=== PATIENT | female | born 1965 | race Caucasian/White ===

== ENCOUNTER 2021-03-20 08:18 | Outpatient (CLI) | payer OTHER, MEDICARE, SELFPAY ==
[2021-03-20 08:55] LABS: Hemoglobin 14.6 g/dL (12.0-15.0); Mean Corpuscular HGB Conc 32.4 g/dl (32-36); Mean Corpuscular Hemoglobin 28.1 pg (26-34); Mean Corpuscular Volume 86.7 fl (80-100); Mean Platelet Volume 9.6 fl (7.4-10.4); Platelet Count Result 245 k/mm3 (150-375); Red Blood Count 5.19 M/mm3 (4.2-5.4); Red Cell Distribution Width 13.3 % (11.5-14.5); White Blood Count 6.2 K/mm3 (4.5-10.0)
[2021-03-20 10:19] LABS: Alanine Aminotransferase 37 U/L (4-35); Albumin Level 4.1 g/dL (3.5-5.1); Alkaline Phosphatase 84 U/L (38-126); Anion Gap 8 mmol/L (8-16); Aspartate Amino Transferase 31 U/L (14-36); Bilirubin,Total 0.4 mg/dL (0.2-1.3); Blood Urea Nitrogen 11 mg/dL (7-17); Calcium 9.2 mg/dL (8.4-10.2); Carbon Dioxide 26 mmol/L (22-30); Chloride 107 mmol/L (98-107); Cholesterol 213 mg/dL (0-200); Estimated Glomerular Filt Rate > 60; Folic Acid 6.9 ng/mL (2.76->20); Glucose 115 mg/dL (65-105); HDL Direct 48 mg/dL; LDL Cholesterol Direct 118 mg/dL; Sodium 141 mmol/L (137-145); Triglycerides 138 mg/dL (<150)
== END 2021-03-20 08:19 | disposition home or self-care (01) ==
LOC: ANHLAB 08:23
PROVIDERS: PCP Physician Assistant; Visit Provider Physician Assistant
DX: Z00.00 Encounter for general adult medical examination without abnormal findings (principal)
CPT/HCPCS: 36415; 80053; 80061; 82607; 82746; 84443; 85027

== ENCOUNTER 2023-04-28 07:51 | Outpatient (CLI) | payer OTHER, MEDICARE, SELFPAY ==
[2023-04-28 08:16] LABS: Hematocrit 47.3 % (37.0-47.0); Hemoglobin 14.7 g/dL (12.0-15.0); Mean Corpuscular HGB Conc 31.1 g/dl (32-36); Mean Corpuscular Hemoglobin 27.8 pg (26-34); Mean Corpuscular Volume 89.4 fl (80-100); Mean Platelet Volume 9.7 fl (7.4-10.4); Platelet Count Result 233 k/mm3 (150-375); Red Blood Count 5.29 M/mm3 (4.2-5.4); Red Cell Distribution Width 13.3 % (11.5-14.5); White Blood Count 7.9 K/mm3 (4.5-10.0)
[2023-04-28 08:28] LABS: Alanine Aminotransferase 22 U/L (6-35); Albumin Level 4.4 g/dL (3.5-5.1); Alkaline Phosphatase 92 U/L (38-126); Anion Gap 5 mmol/L (8-16); Aspartate Amino Transferase 22 U/L (14-36); Bilirubin,Total 0.5 mg/dL (0.2-1.3); Blood Urea Nitrogen 18 mg/dL (7-17); Calcium 9.1 mg/dL (8.4-10.2); Carbon Dioxide 32 mmol/L (22-30); Chloride 99 mmol/L (98-107); Cholesterol 239 mg/dL (0-200); Estimated Glomerular Filt Rate > 60; Glucose 103 mg/dL (65-110); HDL Direct 50 mg/dL; Potassium 4.1 mmol/L (3.4-5.0); Sodium 136 mmol/L (137-145); Triglycerides 144 mg/dL (<150)
[2023-04-28 08:39] LABS: LDL Cholesterol Direct 140 mg/dL
[2023-04-28 09:33] LABS: Folic Acid 17.3 ng/mL (2.76->20)
== END 2023-04-28 07:52 | disposition home or self-care (01) ==
PROVIDERS: PCP Physician Assistant; Visit Provider Physician Assistant
DX: Z00.00 Encounter for general adult medical examination without abnormal findings (principal)
CPT/HCPCS: 36415; 80053; 80061; 82607; 82746; 84443; 85027

== ENCOUNTER 2023-06-24 11:38 | Outpatient (CLI) | payer OTHER, MEDICARE, SELFPAY ==
--- NOTE | ~2023-06-24 | XR_ITS ---
XR lumbar spine 6V w bending DATE: 06/24/2023 12:05 INDICATION: Low back pain TECHNIQUE: AP, lateral, coned lateral lumbosacral and bilateral oblique views. Flexion and extension lateral views. COMPARISON: None FINDINGS: Normal alignment of the lumbar spine in neutral, flexion and extension. Minimal thoracolumbar levoscoliosis. L3 limbus vertebra. The lumbar pedicles are intact. No fracture or bone destruction, spondylolysis or spondylolisthesis. There is minimal degenerative spurring but relative preservation of interspaces at the lumbar spine. The sacroiliac joints are intact. IMPRESSION: Mild levoscoliosis and minimal degenerative spurring Limbus vertebra at L3. Reviewed, dictated and finalized at location A.
== END 2023-06-24 11:39 | disposition home or self-care (01) ==
PROVIDERS: PCP Physician Assistant; Visit Provider Physician Assistant
DX: M54.50 Low back pain, unspecified (principal); M41.86 Other forms of scoliosis, lumbar region
CPT/HCPCS: 72114

== ENCOUNTER 2023-07-02 09:52 | Outpatient (CLI) | payer OTHER, MEDICARE, SELFPAY | END 2023-07-02 09:53 | disposition home or self-care (01) | LOC: ANHAUDIO 09:52 | PROVIDERS: PCP Physician Assistant; Visit Provider Physician Assistant | DX: H90.3 Sensorineural hearing loss, bilateral (principal) | CPT/HCPCS: 92557; 92567 ==

== ENCOUNTER 2023-08-10 09:00 | Outpatient (RCR) | payer OTHER, MEDICARE, SELFPAY ==
--- NOTE | 2023-07-13 10:56 | OPREHPOC ---
Outpatient Therapy Plan of Care This is a Multidisciplinary Plan of Care that may contain components documented by all disciplines (PT, OT, and ST.) PT Problem 1 PT Problem #1 Knowledge Deficit PT Goal 1 Goal 1* indep with HEP 2* pt perform lifting from floor with good body mechanics PT Problem 2 PT Problem #2 Pain PT Goal 1 Goal 1* pt report pain rating at worst of 4/10 in back 2* self assessment Oswestry score of 20% limitation in activity 3* pt report walking tolerance of 30 minutes before pain increases PT Problem 3 PT Problem #3 Impaired Flexibility PT Goal 1 Goal improve flexibility of hips to decrease strain and pull on spine and improve mobility hamstring length with supine SLR 1* R 55' 2* L 55' piriformis length with supine hip and knee flexion > 90, knee cross midline of body 3* R 4* L no pain increase reported with supine hip flexion stretch 5* R 6* L PT Problem 4 PT Problem #4 Impaired Strength PT Goal 1 Goal increase strength of trunk and hips, to improve stability to spine 1* pt able to perform 20 reps of mat strengthening exercises with good stability and control
--- NOTE | 2023-07-13 10:56 | PTOPEVAL1 ---
Assessment and note entered by Beatriz Camarena, PT Evaluation Information Assessment Status Evaluation Diagnosis low back pain Onset mid-Jun 2023 Subjective Information chronic issues with back pain, leaning over bath tub and back popped; have not had PT for back xray of back--mild levoscoliosis, minimal degenerative spurring; have more pain with home tasks--laundry, leaning forward, lifting groceries. 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 She reports chronic problems with back pain, but has never had PT treatment. Recent xray rpeort states mild levoscoliosis and minimal degenerative spurring. Oswestry self assessment score of 34% limitation in activity level. Back pain limits her walking and home activity level with home tasks. With the evaluation: in standing, she has increased lumbar lordosis; tightness over R and L hamstring and piriformis muscles, weakness of trunk and hips; pain increased with standing trunk flexion, supine R and L hip flexion motions Skilled PT services are indicated for modalities to decrease pain; therapeutic exercises to increase strength and flexibility of trunk and hips, with education for HEP and posture/body mechanics. Plan of Care Interventions Electrical Stimulation,Hot Pack/Cold Pack,Manual Therapy,Mechanical Traction,Neuro Re-education, Patie
--- NOTE | 2023-08-10 09:42 | PTOPDC ---
Assessment and note entered by Beatriz Camarena, PT Evaluation Information Assessment Status Discharge Diagnosis low back pain Onset mid-Jun 2023 Subjective Information back is better--not hurting all the time like it did before; doing her exercises at home; 30 minutes of being up and around, then have to sit down because back hurts; Reported Pain Level Pain Score Self Report Additional Pain Score Comments pain rating in past week: 0-5/10, bilateral low back, tensed up and hurts, achy; problems picking things up off floor, bending forward ease pain by sitting, resting, heat pad, take ibuprofen--1-2x/day; Assessment PT Clinical Summary Birana has received 9 PT sessions. Compared to the initial evaluation: pain rating from 1-9/10 to 0-5/10; reported walking/standing activity tolerance from 15 to 30 minutes; Oswestry self assessment rating from 34% to 18% limitation in activity level; increase flexibility of R and L hamstring & piriformis; increase strength of trunk and hips; improved posture/ body mechanics awareness; education completed for HEP and correct posture with exercises at fitness center; The goals were achieved except L hamstring flexibility. Discharge PT services; she is to continue with her home exercise program and body mechanics. Plan of Care PT Services Indicated No
== END 2023-08-10 11:21 | disposition home or self-care (01) ==
LOC: ANHPT 09:00
PROVIDERS: PCP Physician Assistant; Visit Provider Physician Assistant
DX: M54.50 Low back pain, unspecified (principal)
CPT/HCPCS: 97014; 97110; 97161; 97530; G0283

== ENCOUNTER 2023-09-06 08:26 | Emergency (ER) | payer OTHER, MEDICARE, SELFPAY ==
[2023-09-06 08:34] VITALS: BP 157/77; PULSE 118; RESP 20; TEMP 36.3; O2SAT 97
--- NOTE | 2023-09-06 08:40 | ED.GENADULT ---
HPI - General Adult General Chief complaint: Upper Respiratory Infection Stated complaint: throat/allergies Source: patient, RN notes reviewed and old records reviewed Mode of arrival: ambulatory Limitations: no limitations History of Present Illness HPI narrative: 57-year-old female presents to [facility] with complaints sinus congestion with scratchy throat that started today. Patient states has history of allergies, patient using Flonase. Patient denies history, chills, nausea vomiting, myalgias, chest pain, weakness, dizziness. Patient also taking [id number] cough and cold, states getting really MD complaint: congestion Onset (ago): week(s) (2-3) Related Data Home Medications Medication Instructions Recorded Confirmed clonazepam 0.5 mg tablet 0.5 mg PO TID 09/06/19 09/06/23 trazodone 50 mg tablet 200 mg PO .at bedtime 06/23/22 09/06/23 sertraline 100 mg tablet 150 mg PO DAILY 05/12/23 09/06/23 Allergies Allergy/AdvReac Type Severity Reaction Status Date / Time Penicillins Allergy Mild Diarrhea, Verified 09/06/23 08:41 vomiting Review of Systems Constitutional: Constitutional: Reports no additional constitutional complaints Eyes: Eyes: Reports no additional eye complaints ENT: Reports as per HPI, Reports nasal congestion, Reports sinus pressure and Reports sore throat Cardiovascular: Cardiovascular: Reports no additional cardiovascular complaints Respiratory: Respiratory: Reports no additional respiratory complaints Neurologic: Reports system reviewed and no additional complaints, except as documented [facility] Past Medical History Medical History Gastroesophageal reflux disease Obstructive sleep apnea Family History Family History Father Family history of congestive heart failure Social History Social History Smoking status: Never smoker Second hand tobacco smoke exposure: No Alcohol intake: never Lack of Transportation: No Lack of Food: Never True Current Housing: I Have Housing Concerned About Future Housing: No Difficulty Paying Gas/Electric Bills: No Difficulty Paying for Meds: No Currently Unemployed: No Education: Trade/Vocational Certificate Difficulty w/ Childcare or Family Care: No Comments At the time of my signature, I reviewed and agree with the nursing past medical, surgical, social, and family history. There is no relevant family history pertinent to the patient complaint. Exam Const: General: cooperative, healthy appearing, no acute distress and well nourished Nutritional Appearance: well nourished Orientation/consciousness: patient oriented x3 Limitations: no limitations HENMT: Head: normal to inspection and normocephalic Ears: external ears normal, TM's normal bilaterally, mastoids normal and Abnormal EAC present Face/Nose/Sinus: normal facial exam Face and sinus: normal facial exam Mouth: Yes Normal oral and palatal mucosa present, Yes oropharynx normal and Yes moist mucous membranes Throat: posterior oropharynx normal, tonsils normal, uvula midline and no uvular edema Eyes: General: appearance normal, both eyes and all related structures Sclera: sclerae normal Pupils: Equal, round and reactive pupils present Resp: Effort & Inspection: normal respiratory effort, able to speak in complete sentences, no audible wheezes, no cough, no respiratory distress and no retractions Auscultation: clear to auscultation bilaterally, no crackles, no rales, no rhonchi and no wheezes Cardio: Rate: regular rate Rhythm: regular rhythm Skin: General skin exam: normal color and no rashes or lesions noted Neuro: General: patient oriented x3 Cranial nerves: Yes Equal, round and reactive pupils present Psych: Appearance: grossly normal Course Course Emergency Course: Some parts
[2023-09-06 08:42] VITALS: BP 157/77; PULSE 118; RESP 20; TEMP 36.3; O2SAT 97
== END 2023-09-06 08:55 | disposition home or self-care (01) ==
PROVIDERS: Emergency Provider Registered Nurse; PCP Physician Assistant
DX: J30.89 Other allergic rhinitis (principal); K21.9 Gastro-esophageal reflux disease without esophagitis
CPT/HCPCS: 99213; G0463

== ENCOUNTER 2023-09-10 13:25 | Emergency (ER) | payer OTHER, MEDICARE, SELFPAY ==
[2023-09-10 13:33] VITALS: BP 161/91; PULSE 117; RESP 22; TEMP 36.7; O2SAT 92
--- NOTE | 2023-09-10 15:34 | ECG_ITS ---
Measurements Intervals [place] Rate: 115 P: OR: 0 QRS: 40 QRSD: 78 T: 32 QT: 319 QTc: 441 Interpretive Statements SINUS TACHYCARDIA Electronically Signed On 09-12-2023 10:13:21 FAMILY PRESERVATION OFFICER by Jose Luis Pastor M.D.
[2023-09-10 15:59] LABS: Basophils Percent Auto 0.4 % (0.2-1.2); Eosinophils Absolute Auto 0.1 K/mm3 (0-0.3); Eosinophils Percent Auto 1.1 % (0-4.4); Hematocrit 47.5 % (37.0-47.0); Hemoglobin 15.2 g/dL (12.0-15.0); Immature Granulocyte Absolute 0.01 K/mm3 (0.00-0.031); Immature Granulocyte Percent A 0.2 % (0-0.5); Lymphocytes Absolute Auto 1.88 K/mm3 (0.9-3.2); Lymphocytes Percent Auto 34.9 % (18.3-44.2); Mean Corpuscular Hemoglobin 27.8 pg (26-34); Mean Platelet Volume 9.5 fl (7.4-10.4); Monocytes Absolute Auto 0.5 K/mm3 (0.1-0.6); Monocytes Percent Auto 9.9 % (2.6-8.5); Neutrophils Absolute Auto 2.9 K/mm3 (1.3-6.7); Neutrophils Percent Auto 53.5 % (45.5-73.1); Platelet Count Result 231 k/mm3 (150-375); Red Blood Count 5.46 M/mm3 (4.2-5.4); Red Cell Distribution Width 13.2 % (11.5-14.5); White Blood Count 5.4 K/mm3 (4.5-10.0)
[2023-09-10 16:11] LABS: Alanine Aminotransferase 22 U/L (6-35); Albumin Level 4.5 g/dL (3.5-5.1); Alkaline Phosphatase 86 U/L (38-126); Anion Gap 7 mmol/L (8-16); Aspartate Amino Transferase 24 U/L (14-36); Bilirubin,Total 0.5 mg/dL (0.2-1.3); Blood Urea Nitrogen 16 mg/dL (7-17); Calcium 9.3 mg/dL (8.4-10.2); Carbon Dioxide 28 mmol/L (22-30); Chloride 103 mmol/L (98-107); Estimated CRCL calculation 86 ml/min; Estimated Glomerular Filt Rate > 60; Glucose 126 mg/dL (65-110); Potassium 4.2 mmol/L (3.4-5.0); Sodium 138 mmol/L (137-145)
[2023-09-10 16:21] LABS: Troponin I < 0.012 ng/mL (0.000-0.034)
[2023-09-10 17:01] VITALS: BP 156/108; PULSE 114; RESP 20; O2SAT 95
--- NOTE | 2023-09-10 17:04 | ED.RECABL ---
HPI - Recheck/Abnormal Lab/Rx General Chief Complaint: Recheck/Abnormal Lab/Rx Stated Complaint: htn Time Seen by Provider: 09/10/23 15:33 Source: patient Mode of arrival: ambulatory Limitations: no limitations History of Present Illness HPI narrative: 57-year-old female presents today with concerns of high blood pressure. Patient states she took her blood pressure at home and it was high. Patient has noted congestion and a sore throat that started on Wednesday. States she felt worse on Wednesday but currently now is feeling better. Still with some congestion and not feeling that great. She has been taking [id number] cold medicine such as NyQuil and decongestants and is concerned that this could have caused her blood pressure to be elevated. Patient states again that she feels better. She denies any chest pain, shortness a breath, fevers, body aches or chills at this time. Denies history of hypertension. States she does drink fluids yesterday she drank 3-16 oz bottles of fluid in that has a lot for her. Related Data Home Medications Medication Instructions Recorded Confirmed clonazepam 0.5 mg tablet 0.5 mg PO TID 09/06/19 09/06/23 trazodone 50 mg tablet 200 mg PO .at bedtime 06/23/22 09/06/23 sertraline 100 mg tablet 150 mg PO DAILY 05/12/23 09/06/23 Allergies Allergy/AdvReac Type Severity Reaction Status Date / Time Penicillins Allergy Mild Diarrhea, Verified 09/06/23 08:41 vomiting Review of Systems Review of Systems: All systems reviewed & are unremarkable except as noted in HPI and below PMFSH Past Medical History Medical History Gastroesophageal reflux disease Obstructive sleep apnea Family History Family History Father Family history of congestive heart failure Social History Social History Smoking status: Never smoker Second hand tobacco smoke exposure: No Alcohol intake: never Lack of Transportation: No Lack of Food: Never True Current Housing: I Have Housing Concerned About Future Housing: No Difficulty Paying Gas/Electric Bills: No Difficulty Paying for Meds: No Currently Unemployed: No Education: Trade/Vocational Certificate Difficulty w/ Childcare or Family Care: No Exam Const: General: cooperative, healthy appearing, comfortable, no acute distress and well developed Orientation/consciousness: patient oriented x3 HENMT: Head: normal to inspection Eyes: General: appearance normal, both eyes and all related structures Resp: Effort & Inspection: normal respiratory effort and able to speak in complete sentences Auscultation: clear to auscultation bilaterally Cardio: Rate: tachycardic Rhythm: regular rhythm Heart sounds: S1 normal heart sound present and S2 normal heart sound present Neuro: General: patient oriented x3 Course Vital Signs Vital signs: Vital Signs Temperature 98.1 F 09/10/23 13:33 Pulse Rate 117 H 09/10/23 13:33 Respiratory Rate 22 H 09/10/23 13:33 Blood Pressure 161/91 H 09/10/23 13:33 Pulse Oximetry 92 09/10/23 13:33 Oxygen Delivery Room Air 09/10/23 13:33 Temperature 98.1 F 09/10/23 13:33 Pulse Rate 109 H 09/10/23 18:16 Respiratory Rate 18 09/10/23 18:16 Blood Pressure 161/109 H 09/10/23 18:16 Pulse Oximetry 99 09/10/23 18:16 Oxygen Delivery Room Air 09/10/23 13:33 MDM - Recheck/Abnormal Lab/Rx MDM Narrative Medical decision making narrative: 57-year-old female HPI as noted. That workup to include CBC CMP EKG troponin. No concerning findings and lab work. CMP without concerning findings. EKG shows sinus tach. Patient has been taking cold medicine. Currently does not seem to be high due to the amount of fluids that she states she is drinking. Still hypertensive in the emergency department but last blood pressure 161/
[2023-09-10 17:54] LABS: Influenza A QL RT-PCR Negative (Negative); Influenza B QL RT-PCR Negative (Negative); SARS-CoV-2 RNA PCR Positive (Negative)
[2023-09-10 18:16] VITALS: BP 161/109; PULSE 109; RESP 18; O2SAT 99
== END 2023-09-10 18:18 | disposition home or self-care (01) ==
PROVIDERS: Emergency Provider Nurse Practitioner Family; PCP Physician Assistant
DX: U07.1 COVID-19 (principal); I10 Essential (primary) hypertension; J06.9 Acute upper respiratory infection, unspecified; R00.0 Tachycardia, unspecified; K21.9 Gastro-esophageal reflux disease without esophagitis; G47.33 Obstructive sleep apnea (adult) (pediatric)
CPT/HCPCS: 36415; 80053; 84484; 85025; 87636; 93005; 99284

== ENCOUNTER 2024-01-23 10:09 | Emergency (ER) | payer MEDICARE, OTHER, SELFPAY ==
--- NOTE | ~2024-01-23 | CT_ITS ---
EXAMINATION: CT cervical spine wo con DATE: 01/23/2024 11:34 INDICATION: Neck pain TECHNIQUE: Computed tomography (CT) of the cervical spine was performed without intravenous contrast. The dose-length product was 421 mGy-cm. 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 COMPARISON: None FINDINGS: Straightening of cervical lordosis. Vertebral body heights are maintained. Craniovertebral junction is normal. No acute fracture or traumatic malalignment. There is mild multilevel uncinate an d facet hypertrophy. Lung apices are normal. No significant paraspinal soft tissue abnormality. IMPRESSION: 1. No acute abnormality of the cervical spine. Reviewed, dictated and finalized at location A.
[2024-01-23 10:25] VITALS: BP 144/88; PULSE 113; RESP 16; TEMP 36.6; O2SAT 100
[2024-01-23 10:31] VITALS: BP 133/80; PULSE 96; RESP 16; TEMP 36.6; O2SAT 93
[2024-01-23] MEDS: ACETAMINOPHEN 500 MG TABLET 1000 MG PO (10:56)
[2024-01-23] MEDS: LIDOCAINE 5% PATCH 1 PATCH TRANSDERM (10:57)
[2024-01-23 11:01] VITALS: BP 130/87; PULSE 97; RESP 16; O2SAT 92
[2024-01-23 12:00] VITALS: BP 130/86; PULSE 98; RESP 16; TEMP 36.6; O2SAT 96
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
== END 2024-01-23 12:44 | disposition home or self-care (01) ==
PROVIDERS: Emergency Provider Preventive Medicine Aerospace Medicine; PCP Physician Assistant
DX: S13.4XXA Sprain of ligaments of cervical spine, initial encounter (principal); K21.9 Gastro-esophageal reflux disease without esophagitis; G47.33 Obstructive sleep apnea (adult) (pediatric); V49.40XA Driver injured in collision with unspecified motor vehicles in traffic accident, initial encounter
CPT/HCPCS: 72125; 99284; A9270

== ENCOUNTER 2024-05-10 10:30 | Outpatient (RCR) | payer OTHER, MEDICARE, SELFPAY ==
--- NOTE | 2024-03-01 09:23 | OPREHPOC ---
Outpatient Therapy Plan of Care This is a Multidisciplinary Plan of Care that may contain components documented by all disciplines (PT, OT, and ST.) PT Problem 1 PT Problem #1 Knowledge Deficit PT Goal 1 Goal *indep with HEP * correct posture with exercises Target Visit 8 PT Problem 2 PT Problem #2 Pain PT Goal 1 Goal 1* pain rating at worst of 4/10 2* self assessment Neck Disability Index rating of 24% limitation Target Visit 8 PT Problem 3 PT Problem #3 Impaired Flexibility PT Goal 1 Goal increase cervical ROM to improve ability to turn head with driving and home tasks 1* cervial rotation to R 50' 2* cervical rotation to L 50' 3* no pain increase with rotation R 4* no pain increase with rotation L Target Visit 8 PT Problem 4 PT Problem #4 Impaired Strength PT Goal 1 Goal Increase strength of cervical-thoracic musculature to improve posture and position of neck and shoulders: 1* pt able to perform 20 reps of strengthening exercises Target Visit 8
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
--- NOTE | 2024-03-23 10:42 | OPREHPOC ---
Outpatient Therapy Plan of Care This is a Multidisciplinary Plan of Care that may contain components documented by all disciplines (PT, OT, and ST.) PT Problem 1 PT Problem #1 Knowledge Deficit PT Goal 1 Goal *indep with HEP * correct posture with exercises Target Visit 8 Progress Met Comment 03-23-24 progress goals met continue towards goals; progress education and HEP PT Goal 2 Target Visit 16 PT Problem 2 PT Problem #2 Pain PT Goal 1 Goal 1* pain rating at worst of 4/10 2* self assessment Neck Disability Index rating of 24% limitation Target Visit 8 Progress Not Met Comment 03-23-24 progress goals not met; improved #1 to 03/13' #2 to 30% continue towards goals PT Goal 2 Target Visit 16 PT Problem 3 PT Problem #3 Impaired Flexibility PT Goal 1 Goal increase cervical ROM to improve ability to turn head with driving and home tasks 1* cervial rotation to R 50' 2* cervical rotation to L 50' 3* no pain increase with rotation R 4* no pain increase with rotation L Target Visit 8 Progress Not Met Comment 03-23-24 progress goals not met; improved with #2 to 45' continue towards goals PT Goal 2 Target Visit 16 PT Problem 4 PT Problem #4 Impaired Strength PT Goal 1 Goal Increase strength of cervical-thoracic musculature to improve posture and position of neck and shoulders: 1* pt able to perform 20 reps of strengthening exercises Target Visit 8
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
--- NOTE | 2024-03-23 10:59 | PCPTNOTE ---
During today's reevaluation, pt reports her will be having surgery, so she does not want to schedule any more appointments until he is stable and she does not have to assist him. Pt to call for appointments.
--- NOTE | 2024-04-27 09:33 | PCPTNOTE ---
Talked with pt on phone, she reports her has had surgery and she has been busy helping him. She has been ill and coughing, saw yesterday about her cough and is feeling better. Said she was going to call next week for appt to return to therapy.
--- NOTE | 2024-05-22 13:29 | PCPTNOTE ---
This treatment is being continued on visit number [id number] Please see documentation on both accounts to view progress. Completed interventions, outcomes, and problems have been marked as Inactive to facilitate the copying of the Care plan routine for recurring accounts.
== END 2024-05-22 09:50 | disposition home or self-care (01) ==
LOC: ANHPT 10:30
PROVIDERS: PCP Physician Assistant; Visit Provider Physician Assistant
DX: S13.4XXD Sprain of ligaments of cervical spine, subsequent encounter (principal)
CPT/HCPCS: 97014; 97110; 97140; 97161; 97530; G0283

== ENCOUNTER 2024-06-08 09:45 | Outpatient (RCR) | payer OTHER, MEDICARE, SELFPAY ==
--- NOTE | 2024-05-22 13:30 | PCPTNOTE ---
This treatment is being continued from visit number [id number]. Please see documentation on both accounts to view progress. Completed interventions, outcomes, and problems have been marked as Inactive to facilitate the copying of the Care plan routine for recurring accounts.
--- NOTE | 2024-06-08 10:42 | OPREHPOC ---
Outpatient Therapy Plan of Care This is a Multidisciplinary Plan of Care that may contain components documented by all disciplines (PT, OT, and ST.) PT Problem 1 PT Problem #1 Knowledge Deficit PT Goal 1 Goal / Goal Update *indep with HEP * correct posture with exercises Target Visit 8 Progress Met PT Goal 2 Goal / Goal Update 06-08-24 progress goals met continue towards goals to progress education Target Visit 23 Progress Met PT Problem 2 PT Problem #2 Pain PT Goal 1 Goal / Goal Update 1* pain rating at worst of 4/10 2* self assessment Neck Disability Index rating of 24% limitation Target Visit 8 Progress Not Met PT Goal 2 Goal / Goal Update 06-08-24 progress goals not met continue towards goals Target Visit 23 PT Problem 3 PT Problem #3 Impaired Flexibility PT Goal 1 Goal / Goal Update increase cervical ROM to improve ability to turn head with driving and home tasks 1* cervical rotation to R 50' 2* cervical rotation to L 50' 3* no pain increase with rotation R 4* no pain increase with rotation L Target Visit 8 Progress Not Met PT Goal 2 Goal / Goal Update 06-08-24 progress goals not met continue towards: ADD: 5* R shoulder flexion without pain increase 6* R shoulder IR without pain increase Target Visit 23 Progress Not Met PT Problem 4 PT Problem #4 Impaired Strength PT Goal 1 Goal / Goal Update Increase strength of cervical-thoracic musculature to improve posture and position of neck and shoulders: 1* pt able to perform 20 reps of strengthening exercises Target Visit 8
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
== END 2024-07-13 13:43 | disposition home or self-care (01) ==
LOC: ANHPT 09:45
PROVIDERS: PCP Physician Assistant; Visit Provider Physician Assistant
DX: S13.4XXD Sprain of ligaments of cervical spine, subsequent encounter (principal)
CPT/HCPCS: 97014; 97110; 97140; G0283

== ENCOUNTER 2024-07-01 10:48 | Emergency (ER) | payer OTHER, MEDICARE, SELFPAY ==
[2024-07-01 11:13] VITALS: BP 168/100; PULSE 123; RESP 20; TEMP 36.7; O2SAT 90
--- NOTE | 2024-07-01 12:02 | ED.GENADULT ---
HPI - General Adult General Chief complaint: Dental/Oral Stated complaint: cut tongue Time Seen by Provider: 07/01/24 11:54 Source: patient and family Mode of arrival: ambulatory Limitations: no limitations History of Present Illness HPI narrative: 4 YEARS OLD WHITE FEMALE COMPLAINING OF DENTAL DECAY, BROKEN TEETH MAINLY ON THE RIGHT SIDE, CLINCHING ON HER TEETH AT NIGHT, WITH INTERMITTENT BLEEDING AT THE RIGHT SIDE OF THE TONGUE. PATIENT IS NOT ON BLOOD THINNER, DENIES ANY FEVER, CHILLS, NAUSEA, VOMITING, TROUBLE BREATHING OR SWALLOWING, CHEST PAIN, SHORTNESS OF BREATH, HEADACHE OR BACK PAIN. Related Data Home Medications Medication Instructions Recorded Confirmed clonazepam 0.5 mg tablet 0.5 mg PO TID 09/06/19 04/14/24 trazodone 50 mg tablet 200 mg PO .at bedtime 06/23/22 04/14/24 sertraline 100 mg tablet 150 mg PO DAILY 05/12/23 04/14/24 Allergies Allergy/AdvReac Type Severity Reaction Status Date / Time Penicillins AdvReac Mild Diarrhea, Verified 07/01/24 10:49 vomiting Review of Systems Review of Systems: All systems reviewed & are unremarkable except as noted in HPI and below PMFSH Past Medical History Medical History Gastroesophageal reflux disease Obstructive sleep apnea Family History Family History Father Family history of congestive heart failure Social History Social History Smoking status: Never smoker Second hand tobacco smoke exposure: No Alcohol intake: never Lack of Transportation: No Lack of Food: Never True Current Housing: I Have Housing Concerned About Future Housing: No Difficulty Paying Gas/Electric Bills: No Difficulty Paying for Meds: No Currently Unemployed: No Education: Trade/Vocational Certificate Difficulty w/ Childcare or Family Care: No Exam Narrative: GENERAL APPEARANCE: WELL-DEVELOPED, WELL-NOURISHED SKIN: NORMAL COLOR HEAD: NORMOCEPHALIC, NONTRAUMATIC EYES: CLEAR CONJUNCTIVA ENT: OROPHARYNX NORMAL, EARS NORMAL, NOSE NORMAL, EXTENSIVE DENTAL DECAY WITH FRACTURE TEETH RIGHT UPPER AND RIGHT LOWER SIDE, TIMES EXAM SHOWED DRIED BLOOD AT THE TOP OF IT, NO LESIONS, IMPRESSION AT THE RIGHT SIDE OF THE TONGUE, NO ACTIVE BLEEDING CARDIOVASCULAR: REGULAR TACHYCARDIA NECK: SUPPLE, NONTENDER NEUROLOGIC: ALERT AND ORIENTED ?3, Course Vital Signs Vital signs: Vital Signs Temperature 36.7 C 07/01/24 11:13 Pulse Rate 123 H 07/01/24 11:13 Respiratory Rate 20 07/01/24 11:13 Blood Pressure 168/100 H 07/01/24 11:13 Pulse Oximetry 90 07/01/24 11:13 Oxygen Delivery Room Air 07/01/24 11:13 Temperature 36.7 C 07/01/24 11:13 Pulse Rate 123 H 07/01/24 11:13 Respiratory Rate 07/01/24 11:13 Blood Pressure 168/100 H 07/01/24 11:13 Pulse Oximetry 90 07/01/24 11:13 Oxygen Delivery Room Air 07/01/24 11:13 Medical Decision Making MDM Narrative Medical decision making narrative: RIGHT SIDE TONGUE ABRASION SECONDARY TO DENTAL DECAY AND BROKEN TEETH IS MY CONCERN. PATIENT IS TELLING ME THAT SHE HAVE A DENTIST TO FOLLOW UP WITH, UNABLE TO FOLLOW-UP WITH DENTIST FOR YEARS BECAUSE OF MONEY ISSUES. NO LABS OR IMAGING ARE REQUIRED AT THIS TIME EKG SHOWING SINUS TACHYCARDIA. PATIENT IS ASYMPTOMATIC, HIGH LIKELY SECONDARY TO STRESS, OR ANXIETY RELATED TO HER DENTAL AND TONGUE SITUATION. Vital Signs Vital Signs: Vital Signs Temperature 36.7 C 07/01/24 11:13 Pulse Rate 123 H 07/01/24 11:13 Respiratory Rate 07/01/24 11:13 Blood Pressure 168/100 H 07/01/24 11:13 Pulse Oxi
--- NOTE | 2024-07-01 12:03 | ECG_ITS ---
Test Date: 2024-07-01 11:55:42 Measurements Intervals [place] Rate: 128 P: 41 MI: 147 QRS: 48 QRSD: 81 T: 25 QT: 290 QTc: 424 Interpretive Statements SINUS TACHYCARDIA DELAYED PRECORDIAL R/S TRANSITION BORDERLINE T WAVE ABNORMALITY- ANTERIOR LEADS BASELINE ARTIFACT- III ABNORMAL ECG No previous ECG available for comparison Electronically Signed On 07-01-2024 16:58:08 CDT by Wang Malcolm D.O.
[2024-07-01 12:19] VITALS: BP 150/102; PULSE 106; RESP 18; O2SAT 94
== END 2024-07-01 12:21 | disposition home or self-care (01) ==
PROVIDERS: Emergency Provider Emergency Medicine; PCP Internal Medicine
DX: K02.9 Dental caries, unspecified (principal); S00.512A Abrasion of oral cavity, initial encounter; K21.9 Gastro-esophageal reflux disease without esophagitis; G47.33 Obstructive sleep apnea (adult) (pediatric); Z79.899 Other long term (current) drug therapy; R00.0 Tachycardia, unspecified; R94.31 Abnormal electrocardiogram [ECG] [EKG]; X58.XXXA Exposure to other specified factors, initial encounter
CPT/HCPCS: 93005; 99283

== ENCOUNTER 2024-07-18 08:33 | Outpatient (CLI) | payer OTHER, MEDICARE, SELFPAY ==
[2024-07-18 10:08] LABS: Alanine Aminotransferase 22 U/L (6-35); Albumin Level 4.2 g/dL (3.5-5.1); Alkaline Phosphatase 96 U/L (38-126); Anion Gap 8 mmol/L (4-12); Aspartate Amino Transferase 25 U/L (14-36); Bilirubin,Total 0.5 mg/dL (0.2-1.3); Blood Urea Nitrogen 18 mg/dL (7-17); Calcium 9.2 mg/dL (8.4-10.2); Carbon Dioxide 32 mmol/L (22-30); Chloride 99 mmol/L (98-107); Estimated Glomerular Filt Rate > 60; Glucose 97 mg/dL (65-110); Potassium 4.1 mmol/L (3.4-5.0); Sodium 139 mmol/L (137-145)
[2024-07-18 10:15] LABS: Hemoglobin A1C 6.2 % (<5.7)
== END 2024-07-18 08:34 | disposition home or self-care (01) ==
PROVIDERS: PCP Internal Medicine; Visit Provider Internal Medicine
DX: Z00.00 Encounter for general adult medical examination without abnormal findings (principal); E66.9 Obesity, unspecified; R73.9 Hyperglycemia, unspecified
CPT/HCPCS: 36415; 80053; 83036

== ENCOUNTER 2025-02-22 08:48 | Outpatient (CLI) | payer MEDICARE, OTHER, SELFPAY ==
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
--- OUTSIDE RECORDS SUMMARY | 2025-02-22 08:53 | XMS_ITS | Clinical Summary ---
Author Organization [facility] Address [address] [place] [address] Phone Care Team Providers Care Lithopress Operator Name Role Phone Cesar Yeh [facility] Primary Care Provider Allergies No known active allergies Medications buPROPion HCl (WELLBUTRIN PO) Take by mouth. Active SERTRALINE HCL PO Take by mouth. Active ARIPiprazole (ABILIFY) 15 MG Tablet Take 15 mg by mouth daily. Active TRAZODONE HCL PO Take by mouth. Active clonazePAM (KLONOPIN) 0.5 MG Tablet Take 0.5 mg by mouth 3 times daily. Active Active Problems Problem Noted Date Diagnosed Date Dissociative identity disorder 10/23/2015 Major depressive disorder, r ecurrent episode, moderate with anxious distress 08/14/2015 Social History Tobacco Use Types Packs/Day Years Used Date Smoking Tobacco: Never Smokeless Tobacco: Never Alcohol Use Standard Drinks/Week Comments No 0 (1 standard drink = 0.6 oz pur e alcohol) PHQ-2 Answer Date Recorded Total Score - Questions 1-9 1 05/2021 Sexually Active Control Partners Comments Not Currently Abstinence Male Comments Unknown Sex and Gender Information Value Date Recorded Sex Assigned at Not on file Legal Sex Female 7:12 PM CDT Gender Identity Not on file Sexual Orientation Not on file Plan of Treatment Health Maintenance Due Date Last Done Comments Hepatitis C Virus (HCV) Screening 1965 TdaP Immunization 1965 Colonoscopy 12/30/2008 Colorectal Cancer Screening 12/30/2008 Cologuard 12/30/2013 Immunochemical Fecal Occult Blood 12/30/2013 Pneumococcal Immunization (5 0+ years) (1 of 1 - PCV) 12/30/2013 Zoster Immunization (1 of 2) 12/30/2013 Influenza Immunization (#1) 2024 SARS-COV-2 Immunization ( - season) 2024 08/08/2021, 12/20/2020, 11/22/2020 Respiratory Syncytial Virus (RSV) Immunization (Adult) (1 - 1-dose 75+ series) 12/30/2038 Hepatitis B Immunization Aged Out No longer eligible based on patient's age to complete this topic Meningococcal Immunization (ACWY) Aged Out No longer eligible b ased on patient's age to complete this topic Rotavirus Immunization Aged Out No lo nger eligible based on patient's age to complete this topic Goals Goal Patient Goal Type Associated Problems Recent Progress Patient-Stated? 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, 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, during her 30 min individual/family therapy sessions, 1-2 times per month Patient encouraged to focus on what she has control over versus what she doesn't, during her 30 min individual/family sessions, 1-2 times per month Behavioral Health Behavioral Health On track( 022 11:36 AM CDT) No Devon Cruz LCSW Note: Goal: Patient will be able to adhere to more of a healthy routine, less tablet- time, doing housework with healthy leisure activities, within the next one year Goal Reviewed today with: patient and significant other Readiness to change: Ready to change Department associated with goal: [facility] Steps to achieve goal: Patient counseled on importance of healthy daily routine, during her 30 min individual/family therapy sessions, 1-2 times per month Patient counseled on different ideas for leisure activities, during her 30 min individual/family therapy sessions, 1-2 times per month Insurance MEDICARE [facility] MEDICARE [facility] Care Teams Lithopress Operator Relationship Specialty Start Date End Date Cesar Yeh PAC [address] [place] [address] PCP - General Physician E Business Project Manager 01/27/21
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
== END 2025-02-22 08:49 | disposition home or self-care (01) ==
LOC: ANHAUDIO 08:49
PROVIDERS: PCP Internal Medicine; Visit Provider Internal Medicine
DX: H91.90 Unspecified hearing loss, unspecified ear (principal)
CPT/HCPCS: 99199

== ENCOUNTER 2025-03-08 09:53 | Outpatient (CLI) | payer OTHER, MEDICARE, SELFPAY ==
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
--- OUTSIDE RECORDS SUMMARY | 2025-03-08 10:46 | XMS_ITS | Clinical Summary ---
Author Organization [facility] Address [address] [place] [address] Phone Care Team Providers Care Steward/Stewardess Second Name Role Phone Cesar Yeh [facility] Primary Care Provider Allergies No known active [...] 12/30/2013 Zoster Immunization (1 of 2) 12/30/2013 SARS-COV-2 Immunization (4 - season) 2024 08/08/2021, 12/20/2020, 11/22/2020 Influenza Immunization (Seas on Ended) 2025 Respiratory Syncytial Virus (RSV) Immunization (Adult) (1 - 1-dose 75+ series) 12/30/2038 Hepatitis B Immunization Aged Out No longer eligible based on patient's age to complete this topic Human Papillomavirus (HPV) Immunization Aged Out No longer eligible b ased [...] Author Behavioral Health Behavioral Health On track( 022 11:36 AM CDT) Yes Devon Cruz, MATIAS Note: I want to be less anxious and cope better with the COVID pandemic within the next one year Goal Reviewed today with: patient Readiness to change: Ready to change Department associated with goal: [facility] Steps to achieve goal: Patient counseled onadhering to a healthy daily routine: showering dressing, 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, 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, during her 30 min individual/family [...] Ready to change [facility] associated with [facility] Steps to achieve goal: Patient counseled on importance of healthy daily routine, during her 30 min individual/family therapy sessions, 1-2 times per month Patient counseled on different ideas for leisure activities, during her 30 min individual/family therapy sessions, 1-2 times per month Insurance MEDICARE [facility] MEDICARE [facility] Care Teams Steward/Stewardess Second Relationship Specialty Start Date End Date Cesar Yeh PAC [address] [place] [address] PCP - General Physician Pension Examiner 01/27/21
== END 2025-03-08 09:54 | disposition home or self-care (01) ==
LOC: ANHAUDIO 09:53
PROVIDERS: PCP Internal Medicine; Visit Provider Internal Medicine
DX: H90.3 Sensorineural hearing loss, bilateral (principal); H93.19 Tinnitus, unspecified ear
CPT/HCPCS: 92557; 92567

== ENCOUNTER 2025-04-11 08:56 | Outpatient (CLI) | payer OTHER, MEDICARE, SELFPAY ==
--- OUTSIDE RECORDS SUMMARY | 2025-04-11 09:02 | XMS_ITS | Clinical Summary ---
Author Organization [facility] Address [address] [place] [address] Phone Care Team Providers Care Laborer Pie Bakery Name Role Phone Cesar Yeh [facility] Primary Care Provider Allergies No known active [...] Virus (HCV) Screening 1965 TdaP Immunization 1965 Pap Smear 12/30/1984 Cervical Cancer Screening (CCS) 12/30/1993 HPV/Cotest 12/30/1993 Cologuard 12/30/2008 Colonoscopy 12/30/2008 Colorectal Cancer Screening 12/30/2008 Immunochemical Fecal Occult Blood 12/30/2008 Pneumococcal Immunization (5 0+ years) (1 of 1 - PCV) 12/30/2013 Zoster Immunization (1 of 2) 12/30/2013 SARS-COV-2 Immunization ( - season) 2024 08/08/2021, 12/20/2020, 11/22/2020 Influenza Immunization (#1) 2025 Respiratory Syncytial Virus (RSV) Immunization (Adult) [...] On track( 11:36 AM CDT) Yes Devon Cruz LCSW Note: I want to be less anxious and cope better with the COVID pandemic within the next one year Goal Reviewed today with: patient Readiness to change: Ready to change Department associated with goal: [facility] Steps to achieve goal: Patient counseled onadhering to a healthy daily routine: 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, 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, 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, during her 30 min individual/family therapy sessions, 1-2 times per month Patient encouraged to focus on what she has control over versus what she doesn't, during her 30 min individual/family sessions, 1-2 times per month Behavioral Health Behavioral Health On track( 022 11:36 AM CDT) No Devon Curz LCSW Note: Goal: Patient will be able to adhere to more of a healthy routine, less tablet- time, doing housework with healthy leisure activities, within the next one year Goal Reviewed today with: patient and significant other Readiness to change: Ready to change Department associated with goal: [facility] Steps to achieve goal: Patient counseled on importance of healthy daily routine, during her 30 min individual/family therapy sessions, 1-2 times per month Patient counseled on different ideas for leisure activities, during her 30 min individual/family therapy sessions, 1-2 times per month Insurance MEDICARE [facility] MEDICARE [facility] Care Teams Laborer Pie Bakery Relationship Specialty Start Date End Date Cesar Yeh PAC [address] [place] [address] PCP - General Physician Skylights Assembler 01/27/21
--- OUTSIDE RECORDS SUMMARY | 2025-04-11 09:02 | XMS_ITS | Referral Summary ---
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 MZ: FEDERICO Report ID: [id number] Reading Location: [place] [address] Procedure Note Brett Scruggs MD - 01/25/2025 [...] at C5-C6 and C6-C7. There is mild C5-S4xgerlce neural foraminal stenosis. IMPRESSION: No radiographic evidence [...] Brett Scruggs M.D. MZ: FEDERICO Report ID: [id number] Reading Location: [place] [address] Guerrero KRISHNAN IMG XR PROCEDURES Final Resu lt from Last 3 Months Insurance [facility] MEDICARE Care Teams Extractive Metallurgist Relationship Specialty Start Date End Date Jonatan Mc DO [address] [facility] [address] [place] [address] PCP - General Internal Medicine 08/24/24
--- OUTSIDE RECORDS SUMMARY | 2025-04-11 09:02 | XMS_ITS | Clinical Summary ---
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 MZ: FEDERICO Report ID: [id number] Reading Location: [place] [address] Procedure Note Brett Scruggs MD - 01/25/2025 [...] at C5-C6 and C6-C7. There is mild C5-G7xwpsivq neural foraminal stenosis. IMPRESSION: No radiographic evidence [...] Brett Scruggs M.D. MZ: FEDERICO Report ID: [id number] Reading Location: [place] [address] Guerrero KRISHNAN IMG XR PROCEDURES Final Resu lt from Last 3 Months Insurance [facility] MEDICARE Care Teams Rail Car Repairer Relationship Specialty Start Date End Date Jonatan Mc DO [address] [facility] 21 [place] [address] PCP - General Internal Medicine 08/24/24
[2025-04-11 18:05] LABS: Hemoglobin A1C 6.2 % (<5.7)
== END 2025-04-11 08:57 | disposition home or self-care (01) ==
PROVIDERS: PCP Internal Medicine; Visit Provider Nurse Practitioner
DX: Z00.00 Encounter for general adult medical examination without abnormal findings (principal); I10 Essential (primary) hypertension; R73.09 Other abnormal glucose; E66.9 Obesity, unspecified
CPT/HCPCS: 36415; 83036

== ENCOUNTER 2025-04-12 08:01 | Outpatient (CLI) | payer OTHER, MEDICARE, SELFPAY ==
--- OUTSIDE RECORDS SUMMARY | 2025-04-12 08:09 | XMS_ITS | Clinical Summary ---
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, during her 30 min individual/family [...] Ready to change Department associated with goal: [facility] Steps to achieve goal: Patient counseled on importance of healthy daily routine, during her 30 min individual/family therapy sessions, 1-2 times per month Patient counseled on different ideas for leisure activities, during her 30 min individual/family therapy sessions, 1-2 times per month Insurance MEDICARE [facility] MEDICARE [facility] Care Teams Groutman Relationship Specialty Start Date End Date Cesar Yeh PAC [address] [place] [address] PCP - General Physician Gamewell Operator 01/27/21
--- OUTSIDE RECORDS SUMMARY | 2025-04-12 08:09 | XMS_ITS | Referral Summary ---
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 MZ: FEDERICO Report ID: [id number] Reading Location: [place] [address] Procedure Note Brett Scruggs MD - 01/25/2025 [...] at C5-C6 and C6-C7. There is mild C5-M5heapaji neural foraminal stenosis. IMPRESSION: No radiographic evidence [...] Brett Scruggs M.D. MZ: FEDERICO Report ID: [id number] Reading Location: [place] [address] Guerrero KRISHNAN IMG XR PROCEDURES Final Resu lt from Last 3 Months Insurance [facility] H[facility]/PPO Address: [address] [address] [place] [address] MEDICARE Care Teams Christmas Tree Farm Manager Relationship Specialty Start Date End Date Jonatan Mc DO [address] [facility] [address] [place] [address] PCP - General Internal Medicine 08/24/24
--- OUTSIDE RECORDS SUMMARY | 2025-04-12 08:09 | XMS_ITS | Clinical Summary ---
Author Organization 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 MZ: FEDERICO Report ID: [id number] Reading Location: [place] [address] Procedure Note Brett Scruggs MD - 01/25/2025 [...] at C5-C6 and C6-C7. There is mild C5-K2nydtxez neural foraminal stenosis. IMPRESSION: No radiographic evidence [...] Brett Scruggs M.D. MZ: FEDERICO Report ID: [id number] Reading Location: [place] [address] Guerrero KRISHNAN IMG XR PROCEDURES Final Resu lt from Last 3 Months Insurance [facility] MEDICARE Care Teams Associate Financial Analyst Relationship Specialty Start Date End Date Jonatan Mc DO [address] [facility] [address] [place] [address] PCP - General Internal Medicine 08/24/24
[2025-04-12 09:18] LABS: Alanine Aminotransferase 19 U/L (6-35); Albumin Level 4.7 g/dL (3.5-5.1); Alkaline Phosphatase 90 U/L (38-126); Anion Gap 10 mmol/L (4-12); Aspartate Amino Transferase 23 U/L (14-36); Bilirubin,Total 0.4 mg/dL (0.2-1.3); Blood Urea Nitrogen 20 mg/dL (7-17); Calcium 9.7 mg/dL (8.4-10.2); Carbon Dioxide 27 mmol/L (22-30); Chloride 103 mmol/L (98-107); Cholesterol 298 mg/dL (0-200); Estimated Glomerular Filt Rate > 60; Glucose 121 mg/dL (65-110); HDL Direct 62 mg/dL; Potassium 4.0 mmol/L (3.4-5.0); Sodium 140 mmol/L (137-145); Total Protein 8.5 g/dL (6.3-8.2); Triglycerides 176 mg/dL (<150)
== END 2025-04-12 08:02 | disposition home or self-care (01) ==
LOC: ANHLAB 08:06
PROVIDERS: PCP Internal Medicine; Visit Provider Internal Medicine
DX: Z00.00 Encounter for general adult medical examination without abnormal findings (principal); I10 Essential (primary) hypertension; R73.09 Other abnormal glucose; E55.9 Vitamin D deficiency, unspecified
CPT/HCPCS: 36415; 80053; 80061

== ENCOUNTER 2025-06-05 08:45 | Outpatient (RCR) | payer OTHER, MEDICARE, SELFPAY ==
--- NOTE | 2025-03-08 11:56 | OPREHPOC ---
Outpatient Therapy Plan of Care This is a Multidisciplinary Plan of Care that may contain components documented by all disciplines (PT, OT, and ST.) PT Problem 1 PT Problem #1 Knowledge Deficit PT Goal 1 Goal / Goal Update 1* independent with HEP Target Visit 10 PT Problem 2 PT Problem #2 Pain PT Goal 1 Goal / Goal Update 1* pt report pain rating of 3/10 at worst with increased activity 2* pt report able to sleep in her bed Target Visit 10 PT Problem 3 PT Problem #3 Impaired Flexibility PT Goal 1 Goal / Goal Update improve cervical rotation to R and L- to improve ability to drive and perform daily activity active ROM 1* rotation R 45' 2* rotation L 45' Target Visit 10 PT Problem 4 PT Problem #4 Impaired Strength PT Goal 1 Goal / Goal Update * increase shoulder strength, to improve ability to do self and home tasks: in standing x 5 reps with hand weight: 1* R flexion to 90' with 4# 2* R abduction to 90' with 4# 3* L flexion to 90' with 4# 4* L abduction to 90' with 4# 5* R elbow flexion with 5# 6* L elbow flexion with 5#
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
--- NOTE | 2025-04-05 08:11 | PCPTNOTE ---
Pt canceled due to illness.
--- NOTE | 2025-05-07 11:04 | OPREHPOC ---
Outpatient Therapy Plan of Care This is a Multidisciplinary Plan of Care that may contain components documented by all disciplines (PT, OT, and ST.) PT Problem 1 PT Problem #1 Knowledge Deficit PT Goal 1 Goal / Goal Update 1* independent with HEP 05-07-25: progress goal met, continue to progress education. Target Visit 18 PT Problem 2 PT Problem #2 Pain PT Goal 1 Goal / Goal Update 1* pt report pain rating of 3/10 at worst with increased activity 2* pt report able to sleep in her bed 05-07-25 progress goals not met: #1 9/10 and #2 sleeping in recliner Target Visit 18 PT Problem 3 PT Problem #3 Impaired Flexibility PT Goal 1 Goal / Goal Update improve cervical rotation to R and L- to improve ability to drive and perform daily activity active ROM 1* rotation R 45' 2* rotation L 45' 05-07-25 progress goal not met, improved to 40' bilateral continue towards goals Target Visit 18 PT Problem 4 PT Problem #4 Impaired Strength PT Goal 1 Goal / Goal Update * increase shoulder strength, to improve ability to do self and home tasks: in standing x 5 reps with hand weight: 1* R flexion to 90' with 4# 2* R abduction to 90' with 4# 3* L flexion to 90' with 4# 4* L abduction to 90' with 4# 5* R elbow flexion with 5# 6* L elbow flexion with 5# 05-07-25 progress goals not met; improved: R 2# and L 3# shoulder and elbow 3# continue towards goals Target Visit 18
--- NOTE | 2025-05-07 11:04 | PTOPPROG ---
Assessment and note entered by Beatriz Camarena, PT Evaluation Information Assessment Status Progress ICD-10 Condition Codes (PT) Cervicalgia M54.2,Encounter for other orthopedic aftercare Z47.89 Onset 09-04-24 Subjective Information having more pain and problems into my L fingers; dr ordered an MRI, did last week- see dr next week for results. been trying to do the exercises, but same make it worse; R ring finger hurts really bad; had to cancel a few appointments due to new cholesterol med made me so weak, sore & sleeping could not come in; some of the things in therapy help a little but pain still there. more stress with her husbands' health---found another lymph node swollen, going to have PET scan and biopsy of it, really worried about him. recent 05-01-25: MRI per pt portal: C 4-5 disc herniation, C 5-7 surgical hardware intact, C7-T1 severe facet joint OA; PAIN: range in the past week: 6-9/10; pain R side neck and 3,4,5 fingers--4th finger constant and 3 ,5 intermittent pain; stiffness, tightness and hurts in fingers; shoulder tight and hurts; increase pain: driving, home tasks, getting clothes out of the dryer, doing dishes decrease pain: ice, muscle relaxer 1/2 pill/day, tylenol is doing the house cleaning & shopping/ lifting sleeping in recliner, take sleeping meds and sleep through the night; Assessment PT Clinical Summary Briana has received a total of 9 PT sessions. She has not attended PT for the past 3 weeks. Compared to the initial evaluation: pain rating from 0-4/10 to 6-9/10; radicular symptoms into R 3,4,5 fingers--constant in 4th finger; self assessment with Neck Index rating from 32 to 40% limitation in activity level; continues to sleep in her recliner; increase cervical rotation R and L ranges; decreased R shoulder flexion and abduction from 125' to 110' and L is the same at 130'; strength of R shoulder is same and L increased slightly; continues to have spasms and tenderness over R cervical and upper traps muscles . Modalities give slight relief in pain. ROM: sitting active cervical: rotation R 30'/ L 40 '- pain increase on R neck with rotation R; flexion WNL no pain increase shoulder active in standing: R flexion and abduction 110'/ L flexion and abduction 130'; passive in supine 150' bilateral bilateral ER- reach to back of head/ IR reach behind back, fingers to distal scapula no pain in increase with shoulder active motions, but reports R shoulder sometimes hurts Strength: standing with hand wt x 5 reps: shoulder flexion to ~ 90': R 2# & L 3#- increase pain R neck and fingers shoulder abduction to ~ 90' R 2# and L 3# - on R pain neck and shoulder elbow flexion/extension R 3# and L 3#- R increase R neck pain after performing above, reports R neck hurting some The goals were partially achieved. Continue PT treatment. Plan of Care Interventions Electrical Stimulation,Hot Pack/Cold Pack,Manual Therapy,Neuro Re-education,Patient/Caregiver Education,Therapeutic Activities,Therapeutic Exercise,Ultrasound,Other Other Interventions taping PT Services Indicated Yes Treatment Frequency and 2x/wk for 10 visits Duration These treatments will address the objective and functional deficits as defined above. The patient will be advanced safely and appropriately in order for the patient to progress towards his/her prior level of function. Additional exercises will be introduced and as well as a comprehensive home exercise program upon discharge, if needed, ?to ensure carryover of functional gains achieved in the clinic. This treatment plan has been reviewed and agreement upon by the patient.
--- NOTE | 2025-05-29 10:23 | PCPTNOTE ---
Pt canceled due to illness.
== END 2025-06-06 23:59 | disposition home or self-care (01) ==
LOC: ANHPT 08:45
PROVIDERS: PCP Internal Medicine; Visit Provider Orthopaedic Surgery Orthopaedic Surgery of the Spine
DX: M47.812 Spondylosis without myelopathy or radiculopathy, cervical region (principal)
CPT/HCPCS: 97014; 97032; 97035; 97110; 97140; 97161; 97530; G0283

== ENCOUNTER 2025-07-12 09:00 | Outpatient (RCR) | payer OTHER, MEDICARE, SELFPAY ==
--- NOTE | 2025-06-22 11:58 | OPREHPOC ---
Outpatient Therapy Plan of Care This is a Multidisciplinary Plan of Care that may contain components documented by all disciplines (PT, OT, and ST.) PT Problem 1 PT Problem #1 Knowledge Deficit PT Goal 1 Goal / Goal Update 1* independent with HEP 05-07-25: progress goal met, continue to progress education. 06-22-25 progress goal met continue towards goal Target Visit 23 PT Problem 2 PT Problem #2 Pain PT Goal 1 Goal / Goal Update 1* pt report pain rating of 3/10 at worst with increased activity 2* pt report able to sleep in her bed 05-07-25 progress goals not met: #1 9/10 and #2 sleeping in recliner 06-22-25 progress goals not met #1 is 9/10 and #2 still sleeping in recliner REVISE goal #1 to 5/10 at worst Target Visit 23 PT Problem 3 PT Problem #3 Impaired Flexibility PT Goal 1 Goal / Goal Update improve cervical rotation to R and L- to improve ability to drive and perform daily activity active ROM 1* rotation R 45' 2* rotation L 45' 05-07-25 progress goal not met, improved to 40' bilateral continue towards goals 06-22-25 progress goal 2 met continue towards goal 1 Target Visit 23 PT Problem 4 PT Problem #4 Impaired Strength PT Goal 1 Goal / Goal Update * increase shoulder strength, to improve ability to do self and home tasks: in standing x 5 reps with hand weight: 1* R flexion to 90' with 4# 2* R abduction to 90' with 4# 3* L flexion to 90' with 4# 4* L abduction to 90' with 4# 5* R elbow flexion with 5# 6* L elbow flexion with 5# 05-07-25 progress goals not met; improved: R 2# and L 3# shoulder and elbow 3# continue towards goals 06-22-25 progress goals 3,4 met improved with others continue towards goals Target Visit 23
--- NOTE | 2025-06-22 11:58 | PTOPPROG ---
Assessment and note entered by Beatriz Camarena, PT Assessment Status Progress ICD-10 Condition Codes (PT) Cervicalgia M54.2,Encounter for other orthopedic aftercare Z47.89 Onset 09-04-24 Subjective Information may be a little better, but still hurts and comes/ goes; she is doing few more house chores, but does most of them; she has more pain with doing more; had EMG on R arm, but do not have the results yet from it; do not have dr colin yet for follow up after EMG; still sleeping in the recliner because cannot get comfortable in the bed ; PAIN: range in the past week 5-910; R upper traps, neck and hand; hand--stiff and aches; intermittent numb and tingles in 3,4,5 fingers increase pain: doing laundry, dishes, using arm to do things decrease pain: rest, ice, taking prescription pain med-- strong ibuprofen-like pain is sleeping in the recliner and able to sleep through night- take sleeping meds Assessment PT Clinical Summary Briana has received 17 PT sessions. With today's assessment, compared to the last assessment: pain rating from 6-910 to 5-910; radicular pain into R 3,4,5 fingers from constant to intermittent numbness/ tingling; continues to sleep in the recliner for comfort; self assessment with Neck index rating from 40 to 26% limitation in activity level; increase in R active shoulder flexion 120' and abduction 130'; increase cervical rotation R to 40' and L to 45'; pain increase reported with cervical rotation to L and shoulder IR and ER motions; increase strength of R and L shoulder with use of hand weight x 5 reps; education for progression of HEP and posture. The goals were partially met. Continue PT, with decrease frequency to 1x/week. Plan of Care Interventions Electrical Stimulation,Hot Pack/Cold Pack,Manual Therapy,Neuro Re-education,Patient/Caregiver Education,Therapeutic Activities,Therapeutic Exercise,Ultrasound,Other Other Interventions taping PT Services Indicated Yes Treatment Frequency and 1x/wk for 6 visits Duration These treatments will address the objective and functional deficits as defined above. The patient will be advanced safely and appropriately in order for the patient to progress towards his/her prior level of function. Additional exercises will be introduced and as well as a comprehensive home exercise program upon discharge, if needed, ?to ensure carryover of functional gains achieved in the clinic. This treatment plan has been reviewed and agreement upon by the patient.
--- NOTE | 2025-07-31 11:34 | PTOPDC ---
Assessment and note entered by Beatriz Camarena, PT Assessment Status Discharge - Pt Not Present ICD-10 Condition Codes (PT) Cervicalgia M54.2,Encounter for other orthopedic aftercare Z47.89 Onset 09-04-24 Subjective Information pt called on 07-16-25: canceled all of her PT appointments, going to have injections. Assessment PT Clinical Summary Briana called and canceled her PT due to going to have injections. Refer to the progress report dated 06-22-25. Discharge PT per pt request. The goals were not addressed. Plan of Care PT Services Indicated No
== END 2025-07-31 12:38 | disposition home or self-care (01) ==
LOC: ANHPT 09:00
PROVIDERS: PCP Internal Medicine; Visit Provider Orthopaedic Surgery Orthopaedic Surgery of the Spine
DX: Z48.89 Encounter for other specified surgical aftercare (principal); Z47.89 Encounter for other orthopedic aftercare; M54.2 Cervicalgia; S13.4XXA Sprain of ligaments of cervical spine, initial encounter; M47.812 Spondylosis without myelopathy or radiculopathy, cervical region; Z98.1 Arthrodesis status
CPT/HCPCS: 97014; 97035; 97110; 97140; 97530; G0283